=== PATIENT | female | born 1985 | race Caucasian/White ===

== ENCOUNTER 2022-01-01 08:21 | Emergency (ER) | payer SELFPAY ==
[2022-01-01] VITALS (9 sets, daily range): BP systolic 114–152; BP diastolic 79–107; PULSE 84–99; RESP 16–22; TEMP 36.3; O2SAT 94–97; BMI 41.9
--- NOTE | 2022-01-01 09:09 | ED.NURSE ---
Report from Deny Maxwell RN. I will now assume care of patient.
--- NOTE | 2022-01-01 09:13 | CRLHL7_ITS ---
For Patients: As a result of the Century Cures Act, medical imaging exams and procedure reports are released immediately into your electronic medical record. You may view this report before your referring provider. If you have questions, please contact your health care provider. INDICATION: Chest pain. TECHNIQUE: Chest 1 view. COMPARISON: None. FINDINGS: No focal consolidation, pleural effusion, or pneumothorax. Normal heart size and pulmonary vascularity. Slight elevation of the right hemidiaphragm. The bones are unremarkable. IMPRESSION: No acute cardiopulmonary findings. Dictated by Sherice Castro MD @ 01/01/2022 10:15:54 AM (Electronically Signed)
--- NOTE | 2022-01-01 09:15 | ED_ITS ---
HPI - Chest Pain General Time Seen by Provider: 09:00 Date Seen: 01/01/22 Chief Complaint: Chest Pain Stated Complaint: Chest pains Time Seen by Provider: 01/01/22 09:03 Source: patient and RN notes reviewed Mode of arrival: ambulatory Limitations: no limitations History of Present Illness HPI narrative: Rochelle is a very pleasant 36-year-old female who comes to the emergency room for evaluation regarding chest pain. Patient notes that she had the onset of chest pain when she awoke overnight. She this is in her left upper chest that she describes as somebody using their hands to presses heart is they can on it. It is not associated with shortness of breath but does get worse with walking and any movement. She took Advil and was able to fall back asleep. She states that the pain will occasionally shoot into her upper left arm. She states that when she bends her arm she will also have pain on the volar surface of the upper arm. She states that she does not have a regular doctor and just moved to [place]. She works here at a company called [employer]. Patient notes that she has had other EKGs and heart workup in the past because this has been going on and off for years, but it has not been as bad as today. Currently lying in her bed she states that the pain is gone except for a dull ache. When it is at its worse it is throbbing. She has a strong cardiac family history with a mom dying at the age of 60 from an [place] and brothers with history of atrial fibrillation. She does have hypertension but does not smoke. She cannot recall any trauma to this area. She also notes a history of scoliosis and arthritis in her neck. Note last week she did have runny nose and cough but relates this to her nieces and nephews who had some cold. MD complaint: chest heaviness and chest discomfort Pertinent past history: other (Hypertension) Onset (ago): hour(s) Timing of current episode: now resolved (Except for some dull achiness) Prior episodes: Yes Pain location: left chest Pain radiation: left arm Risk Factors Coronary artery disease risk factors: diabetes and hypertension Related Data Home Medications Medication Instructions Recorded Confirmed lisinopril 10 mg tablet mg 01/01/22 metformin 500 mg tablet 500 mg PO BID 01/01/22 01/01/22 Allergies Allergy/AdvReac Type Severity Reaction Status Date / Time No Known Drug Allergies Allergy Verified 01/01/22 08:32 Review of Systems Status of ROS Reports: 10 or more systems reviewed and unremarkable except as noted in History and below Const Denies: fever or fatigue Eyes Denies: change in vision ENMT Denies: throat pain or difficulty swallowing Cardio Reports: chest pain, swelling of feet/ankles (Chronic swelling of the right ankle) and other (No pain in the calves or history of DVT); Denies: palpitations or shortness of breath with exertion Resp Reports: cough; Denies: shortness of breath GI Denies: difficulty swallowing Neuro Denies: headache or numbness in extremities Endo Denies: fatigue PFSH PFSH Medical History Diabetes Hypertension Family History Brother A-fib Father Diabetes Hypercholesteremia High blood pressure COPD (chronic obstructive pulmonary disease) Mother Diabetes Hypercholesteremia High blood pressure Father Diabetes Social History Smoking Status: Former smoker Do you use any of these nicotine containing products: None Second hand tobacco smoke exposure: Yes How often do you have a drink containing alcohol: never AUDIT-C Alcohol total score: 0 Non-prescribed substance use: denies use service: No Exam Const Vital Signs, click to edit/add: Vital Signs - 24 hr 01/01/22 08:25 01/01/22 09:00 01/01/22 09:30 Temperature 97.3 F L Pulse Rate [Right Radial] 97 99 85 Respiratory Rate 16 16 18 Blood Pressure [Right Upper Arm] 131/91 H 152/107 H 137/97 H Pulse Oximetry 97 95 97 01/01/22 10:00 01/01/22 10:30 01/01/22 11:00 Temperature Pulse Rate [Right Radial] 88 91 91 Respiratory Rate 18 22 18 Blood Pressure [Right Upper Arm] 123/79 125/83 124/81 Pulse Oximetry 94 95 95 01/01/22 11:30 01/01/22 12:00 01/01/22 12:30 Temperature Pulse Rate [Right Radial] 88 87 84 Respiratory Rate 18 Blood Pressure [Right Upper Arm] 114/81 122/82 124/86 Pulse Oximetry 96 96 Documenting provider has reviewed patient's vital signs: yes Common normals: no apparent distress and oriented x3 General appearance: cooperative Nutritional appearance: overweight HENMT Common normals: head/scalp atraumatic Head and scalp: atraumatic Eye Common normals: PERRL and conjunctivae normal General eye: normal appearance of both eyes Conjunctiva: conjunctiva(e) normal Pupil: PERRL Neck & C-Spine Common normals: full ROM and supple Resp Common normals: normal respiratory effort and clear to auscultation bilaterally Auscultation: clear to auscultation bilaterally Cardio Common normals: regular rate and regular rhythm Rate: regular rate Rhythm: regular rhythm GI Common normals: Normal to inspection, nondistended, normoactive bowel sounds present and soft to palpation Palpation: soft Extremity Other: Positive Spurling sign on the left. With pain radiating into left lateral chest and upper arm. Full strength and motor in left arm. Increases discomfort however on the left anterior chest wall. Palpation over chest wall yields no discomfort with the exception as extreme lateral chest wall and musculature. Neuro Common normals: oriented x3 Skin Common normals: no rashes or lesions noted General skin exam: no rashes or lesions noted Course Course Hospital Course: Initial history and examination points toward a musculoskeletal cause of this discomfort. However, Rochelle has risk factors for cardiac disease including diabetes and hypertension as well as a strong family history of cardiac disease. Will obtain a troponin and EKG now and in greater than 90 minutes as well as chest x-ray. We will check other labs to include a CBC basic panel. Reevaluation(s) Reevaluation #1: Patient notes that after Toradol she can still feel ?something? in her left upper chest but she is improved. During her stay here she has had no abnormalities noted on EKG. Or heart monitor. Reevaluation #2: Patient notes improvement of her chest pain post Toradol administration. She notes that if she is able to hold her arm in front of her body she has no discomfort. Any sort external rotation or extension does increase her discomfort. With her 2nd troponin and EKG being reassuring I do think that this is most likely musculoskeletal discomfort. Time: 12:15 Vital Signs Vital signs: Initial Vital Signs Temperature 97.3 F L 01/01/22 08:25 Temperature Source Temporal Artery Scan 01/01/22 08:25 Pulse Rate 97 01/01/22 08:25 Pulse Rhythm 01/01/22 08:25 Respiratory Rate 16 01/01/22 08:25 Blood Pressure 131/91 H 01/01/22 08:25 Blood Pressure Mean 104 01/01/22 08:25 Blood Pressure Position Sitting 01/01/22 08:25 Pulse Oximetry 97 01/01/22 08:25 Oxygen Delivery Method 01/01/22 08:25 Vital Signs Temperature 97.3 F L 01/01/22 08:25 Pulse Rate 97 01/01/22 08:25 Respiratory Rate 16 01/01/22 08:25 Blood Pressure 131/91 H 01/01/22 08:25 Pulse Oximetry 97 01/01/22 08:25 Temperature 97.3 F L 01/01/22 08:25 Pulse Rate 84 01/01/22 12:30 Respiratory Rate 18 01/01/22 12:30 Blood Pressure 124/86 01/01/22 12:30 Pulse Oximetry 96 01/01/22 12:30 MDM - Chest Pain MDM Narrative Medical decision making narrative: 1. Left shoulder pain-at this time I do believe patient likely has localized musculoskeletal discomfort. However I cannot rule out a radicular component as she did have a positive Spurling sign on the left. I do not think this is secondary to a cardiac cause. At this time she has full motor and strength. She is feeling better after Toradol and she may continue to use NSAIDs as she needs for discomfort. I would have her follow-up with orthopedics and she will likely need a physical therapy consult as well. She is to return to the emergency room for worsening symptoms. 2. Atypical chest pain-patient has EKGs x2 that are reassuring as well as 2 negative troponins. 3. Disposition-patient is discharged home. A note for work is given for today. Medical Records Data Attestation: I reviewed the patient's medical records. Lab Data Attestation: I reviewed the patient's lab results. Labs: Lab Results 01/01/22 01/01/22 01/01/22 Range/Units 09:30 09:32 09:32 WBC 3.82 L (4.50-11.00) K/uL RBC 4.51 (4.00-5.20) m/uL Hgb 13.6 (12.0-16.0) gm/dL Hct 40.4 (33.0-51.0) % MCV 90 (80-100) fL MCH 30 (26-34) pg MCHC 34 (32-36) gm/dL RDW Coeff of Antonella 13.1 (11.5-15.5) % Plt Count 228 (140-440) K/uL Neut % (Auto) 59.1 (42.0-72.0) % Lymph % (Auto) 31.7 (20-44) % [place] % (Auto) 7.3 (0.0-11.0) % Eos % (Auto) 1.6 (0.0-7.0) % Baso % (Auto) 0.0 (0.0-3.0) % Neut # (Auto) 2.30 (1.7-7.0) K/uL Lymph # (Auto) 1.20 (0.90-2.90) K/uL [place] # (Auto) 0.30 (0.00-0.90) K/UL Eos # (Auto) 0.10 (0.00-0.50) K/uL Baso # (Auto) 0.00 (0.00-0.30) K/uL Abs Immat Gran (auto) 0.01 (0.00-0.30) K/uL Sodium 137 (135-149) mmol/L Potassium 4.1 (3.6-5.1) mmol/L Chloride 104 (96-114) mmol/L Carbon Dioxide 22 (20-32) mmol/L BUN 12 (5-24) mg/dL Creatinine 0.6 (0.5-1.5) mg/dL Estimated Creat Clear 142.87 Glucose 210 H (60-115) mg/dL Calcium 9.2 (8.4-10.6) mg/dL SARS-CoV-2 (PCR) (Negative) Influenza Type A (PCR) (Negative) Influenza Type B (PCR) (Negative) POC Troponin I 0.00 L (0.01-0.04) ng/ml 01/01/22 01/01/22 Range/Units 09:32 11:45 WBC (4.50-11.00) K/uL RBC (4.00-5.20) m/uL Hgb (12.0-16.0) gm/dL Hct (33.0-51.0) % MCV (80-100) fL MCH (26-34) pg MCHC (32-36) gm/dL RDW Coeff of Antonella (11.5-15.5) % Plt Count (140-440) K/uL Neut % (Auto) (42.0-72.0) % Lymph % (Auto) (20-44) % [place] % (Auto) (0.0-11.0) % Eos % (Auto) (0.0-7.0) % Baso % (Auto) (0.0-3.0) % Neut # (Auto) (1.7-7.0) K/uL Lymph # (Auto) (0.90-2.90) K/uL [place] # (Auto) (0.00-0.90) K/UL Eos # (Auto) (0.00-0.50) K/uL Baso # (Auto) (0.00-0.30) K/uL Abs Immat Gran (auto) (0.00-0.30) K/uL Sodium (135-149) mmol/L Potassium (3.6-5.1) mmol/L Chloride (96-114) mmol/L Carbon Dioxide (20-32) mmol/L BUN (5-24) mg/dL Creatinine (0.5-1.5) mg/dL Estimated Creat Clear Glucose (60-115) mg/dL Calcium (8.4-10.6) mg/dL SARS-CoV-2 (PCR) Negative SARS-CoV-2 (Negative) Influenza Type A (PCR) Negative PCR FLU A (Negative) Influenza Type B (PCR) Negative PCR FLU B (Negative) POC Troponin I 0.00 L (0.01-0.04) ng/ml Imaging Data chest xr: My impression: He by my read no evidence of infiltrates. Radiologist's impression: Concurs with no acute findings. ECG Data Attestation: I personally reviewed and interpreted this ECG as follows: (EKG 1. Sinus rhythm at a rate of [address] or T-wave changes. EKG 2. Sinus rhythm at a rate of 86. No acute ST or T-wave changes noted.) ECG interpretation date: 01/01/22 Prior ECG tracings: not available for review Discharge Plan Discharge Clinical Impression: Atypical chest pain, Left shoulder pain Patient Disposition: Home, Self-Care Condition: Improved Additional Instructions: At this point I do recommend follow-up with orthopedics. An appointment can be made at [phone]. You may need physical therapy as well. Return to the emergency room if you have the onset of new symptoms. A note for work is included in your discharge instructions today. Activity Level: No Restrictions Prescriptions: No Action lisinopril 10 mg tablet 0RF Label Comments: TAKE 1 TABLET BY MOUTH ONCE DAILY metformin 500 mg tablet 500 mg PO BID 0RF Follow Up/Referrals: Provider,Not a Local [Primary Care Provider] - Stand Alone Forms: [employer] Info Instructions
[2022-01-01 09:50] LABS: Eosinophils Percent Auto 1.6 % (0.0-7.0); Hematocrit 40.4 % (33.0-51.0); Hemoglobin* 13.6 gm/dL (12.0-16.0); Immature Granulocytes Abs Auto 0.01 K/uL (0.00-0.30); Lymphocytes Percent Auto 31.7 % (20-44); Mean Corpuscular HGB Conc 34 gm/dL (32-36); Mean Corpuscular Hemoglobin 30 pg (26-34); Mean Corpuscular Volume 90 fL (80-100); Monocytes Percent Auto 7.3 % (0.0-11.0); Neutrophils Percent Auto 59.1 % (42.0-72.0); Platelet Count* 228 K/uL (140-440); RDW Coefficient of Variation % 13.1 % (11.5-15.5); Red Blood Count 4.51 m/uL (4.00-5.20); White Blood Count* 3.82 K/uL (4.50-11.00)
[2022-01-01 09:57] LABS: Slide Review Reflex No
[2022-01-01 10:17] LABS: PCR FLU A Negative PCR FLU A (Negative); PCR FLU B Negative PCR FLU B (Negative)
[2022-01-01 10:22] LABS: Chloride* 104 mmol/L (96-114); Sodium* 137 mmol/L (135-149)
[2022-01-01 10:23] LABS: Potassium* 4.1 mmol/L (3.6-5.1)
[2022-01-01 10:26] LABS: Blood Urea Nitrogen* 12 mg/dL (5-24); Calcium* 9.2 mg/dL (8.4-10.6); Carbon Dioxide* 22 mmol/L (20-32); Creatinine* 0.6 mg/dL (0.5-1.5); Est. Creatinine Clearance* 142.87; Estimated Glomerular Filt Rate 120.72; Glucose* 210 mg/dL (60-115)
[2022-01-01 10:29] LABS: SARS PCR* Negative SARS-CoV-2 (Negative)
[2022-01-01] MEDS: KETOROLAC 15 MG/ML inj IVP (10:45)
--- NOTE | 2022-01-01 11:45 | ED.NURSE ---
Patient resting comfortably on cot, watching television. Pain remains 6/10. Throbbing. Patient denies needs at present. EKG obtained, labs drawn for recheck POC troponin.
== END 2022-01-01 12:36 | disposition home or self-care (01) ==
PROVIDERS: Emergency Provider Family Medicine
DX: R07.89 Other chest pain (principal); M25.512 Pain in left shoulder
CPT/HCPCS: 36415; 71045; 80048; 84484; 85025; 87502; 87635; 93005; 96374; 99285; J1885

== ENCOUNTER 2022-03-11 05:42 | Emergency (ER) | payer SELFPAY ==
[2022-03-11 05:47] VITALS: BP 155/79; PULSE 86; RESP 18; TEMP 35.9; O2SAT 97; BMI 41.9
--- NOTE | 2022-03-11 06:22 | CRLHL7_ITS ---
For Patients: As a result of the Century Cures Act, medical imaging exams and procedure reports are released immediately into your electronic medical record. You may view this report before your referring provider. If you have questions, please contact your health care provider. INDICATION: Pain COMPARISON: None TECHNIQUE: CT examination of the abdomen and pelvis was performed without intravenous contrast. Thin section axial images were obtained from the lung bases through the pubic symphysis. Oral contrast was not administered. Please note that all CT scans at this facility use dose modulation, iterative reconstruction, and/or weight-based dosing when appropriate to reduce radiation dose to as low as reasonably achievable. FINDINGS: LUNG BASES: The lung bases as visualized appear normal.The heart size is normal at the lung bases. LIVER/BILIARY SYSTEM:The liver is normal in size and configuration given the lack of intravenous contrast. There is no visible focal mass and there is no intra- or extra hepatic biliary ductal dilatation.Steatosis. Normal appearing gallbladder. ADRENALS: Normal non-contrast appearance KIDNEYS, URETERS and BLADDER:The kidneys appear normal given lack of intravenous contrast. No visible mass, calculus or hydronephrosis. The ureters and bladder as visualized appear normal. SPLEEN:Normal non-contrast appearance. PANCREAS: Normal non-contrast appearance. RETROPERITONEUM and MESENTERY: There is no mass, adenopathy or aortic aneurysm. GASTROINTESTINAL SYSTEM: There is no evidence of diverticulitis, colitis, mechanical obstruction, or appendicitis. The small bowel as visualized appears normal. PELVIS: No mass, adenopathy or free fluid. OSSEOUS STRUCTURES and ABDOMINAL WALL: Degenerative changes, especially at L4-L5 and L5-S1.Induration of the skin about umbilicus probably related to cellulitis. There is also a collection in this area best seen on axial image 141 and sagittal image 86. This measures about 3.2 x 2.0 centimeters. The collection probably represents an abscess and is relatively superficial. OTHER: No free fluid or free air. I discussed this case with Dr. Saurabh Lau at 7:14 a.m. on March 11, 2022 IMPRESSION: 1. Findings likely related to cellulitis of the umbilicus with an associated collection measuring 3.2 x 2.0 centimeters. The collection likely represents an abscess. 2. Other incidental nonacute appearing findings as above. Please note that all CT scans at this facility use dose modulation, iterative reconstruction, and/or weight-based dosing when appropriate to reduce radiation dose to as low as reasonably achievable. Dictated by Hunter Ramsey MD @ 03/11/2022 7:15:46 AM (Electronically Signed)
--- NOTE | 2022-03-11 06:24 | ED.GENADULT ---
HPI - General Adult General Chief complaint: Abdominal Pain Stated complaint: stomach issues Time Seen by Provider: 03/11/22 06:14 History of Present Illness HPI narrative: Patient is a 37-year-old female who comes in with two or three days of worsening abdominal pain. She has had some loose stools. Nothing black or bloody. She has also had some drainage from her belly button every month for several months. She complains of pain in this area but also more diffuse lower abdominal pain. No urinary symptoms. No nausea, vomiting, acid reflux. Tylenol and ibuprofen help some. Pain is worse when she bends forward. 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 No vaginal symptoms. Related Data Home Medications Medication Instructions Recorded Confirmed lisinopril 10 mg tablet mg 01/01/22 metformin 500 mg tablet 500 mg PO BID 01/01/22 03/11/22 Previous Rx's Medication Instructions Recorded cephalexin 500 mg capsule 500 mg PO TID 10 days #30 caps 03/11/22 Allergies Allergy/AdvReac Type Severity Reaction Status Date / Time No Known Drug Allergies Allergy Verified 01/01/22 08:32 Review of Systems Status of ROS: Reports: 10 or more systems reviewed and unremarkable except as noted in History and below PFSH PFS Medical History (Updated 03/11/22 @ 07:40 by Saurabh Lau MD) Exogenous obesity Hypertension Type 2 diabetes mellitus Family History Brother A-fib Father Diabetes Hypercholesteremia High blood pressure COPD (chronic obstructive pulmonary disease) Mother Diabetes Hypercholesteremia High blood pressure Father Diabetes Social History (Updated 03/11/22 @ 06:23 by Saurabh Lau MD) Narrative: Single, [place], nonsmoker, social EtOH Smoking Status: Former smoker Do you use any of these nicotine containing products: None Second hand tobacco smoke exposure: Yes How often do you have a drink containing alcohol: never AUDIT-C Alcohol total score: 0 Non-prescribed substance use: denies use service: No Exam Narrative: Exam Narrative: Vitals noted. HEENT: Conjunctiva clear. Neck is supple without adenopathy, thyromegaly.. Lungs: Clear to auscultation in all pereira. No wheezes, rales, rhonchi. Heart: Regular rate and rhythm without murmur. Abdomen: Obese, Soft and nontender. No guarding, rigidity, rebound. Bowel sounds are normal. No palpable masses. She has redness and pus coming from her umbilicus. This area is tender when probed. Extremities: No cyanosis or edema. Good distal pulses. Neurologic: Awake, alert, fully oriented. Neurologic exam is nonfocal. Const: Vital Signs, click to edit/add: Vital Signs - 24 hr 03/11/22 05:47 Temperature 96.6 F L Pulse Rate [Pulse Oximeter] 86 Respiratory Rate 18 Blood Pressure [Le ft Upper Arm] 155/79 H Pulse Oximetry 97 Oxygen Delivery Me thod Room Air Documenting provider has reviewed patient's vital signs: yes Course Course Hospital Course: Patient was seen and examined. Labs and CT of the abdomen and pelvis are ordered. She declines a need for pain medication. Reevaluation(s) Reevaluation #1: Labs are all unremarkable other than elevated glucose. CT shows a 2 x 3 cm umbilical abscess but is otherwise unremarkable. Vital Signs Vital signs: Initial Vital Signs Temperature 96.6 F L 03/11/22 05:47 Temperature Source Temporal Artery Scan 03/11/22 05:47 Pulse Rate 86 03/11/22 05:47 Respiratory Rate 18 03/11/22 05:47 Blood Pressure 155/79 H 03/11/22 05:47 Blood Pressure Mean 104 03/11/22 05:47 Blood Pressure Position Sitting 03/11/22 05:47 Pulse Oximetry 97 03/11/22 05:47 Oxygen Delivery Method 03/11/22 05:47 Vital Signs Temperature 96.6 F L 03/11/22 05:47 Pulse Rate 86 03/11/22 05:47 Respiratory Rate 18 03/11/22 05:47 Blood Pressure 155/79 H 03/11/22 05:47 Pulse Oximetry 97 03/11/22 05:47 Oxygen Delivery Method 03/11/22 05:47 Temperature 96.6 F L 03/11/22 05:47 Pulse Rate 86 03/11/22 05:47 Respiratory Rate 18 03/11/22 05:47 Blood Pressure 155/79 H 03/11/22 05:47 Pulse Oximetry 97 03/11/22 05:47 Oxygen Delivery Method 03/11/22 05:47 Medical Decision Making Lab Data Labs: Lab Results 03/11/22 03/11/22 03/11/22 Range/Units 06:29 06:29 07:20 WBC 3.39 L (4.50-11.00) K/uL RBC 4.17 (4.00-5.20) m/uL Hgb 12.7 (12.0-16.0) gm/dL Hct 37.4 (33.0-51.0) % MCV 90 (80-100) fL MCH 31 (26-34) pg MCHC 34 (32-36) gm/dL RDW Coeff of Antonella 13.4 (11.5-15.5) % Plt Count 204 (140-440) K/uL Neut % (Auto) 59.5 (42.0-72.0) % Lymph % (Auto) 29.5 (20-44) % [place] % (Auto) 8.6 (0.0-11.0) % Eos % (Auto) 1.8 (0.0-7.0) % Baso % (Auto) 0.3 (0.0-3.0) % Neut # (Auto) 2.00 (1.7-7.0) K/uL Lymph # (Auto) 1.00 (0.90-2.90) K/uL [place] # (Auto) 0.30 (0.00-0.90) K/UL Eos # (Auto) 0.10 (0.00-0.50) K/uL Baso # (Auto) 0.00 (0.00-0.30) K/uL Abs Immat Gran (auto) 0.01 (0.00-0.30) K/uL Sodium 137 (135-149) mmol/L Potassium 3.7 (3.6-5.1) mmol/L Chloride 103 (96-114) mmol/L Carbon Dioxide 21 (20-32) mmol/L BUN 11 (5-24) mg/dL Creatinine 0.5 (0.5-1.5) mg/dL Estimated Creat Clear 164.12 Estimated GFR 125 ml/min Glucose 186 H (60-115) mg/dL Calcium 8.6 (8.4-10.6) mg/dL Total Bilirubin 0.5 (0.1-1.5) mg/dL Direct Bilirubin 0.2 (0.0-0.5) mg/dL AST 32 (12-35) U/L ALT 32 (4-35) U/L Alkaline Phosphatase 69 (40-150) U/L Total Protein 7.0 (6.0-8.3) g/dL Albumin 4.2 (3.3-5.0) g/dL Lipase 64 (23-300) U/L Urine Color Yellow (Yellow) Urine Appearance Clear (Clear) Urine pH 6.0 (5.0-8.5) Ur Specific [place] 1.020 (1.000-1.030) Urine Protein Negative (Negative) Urine Glucose (UA) Trace A (Negative) Urine Ketones Negative (Negative) Urine Blood Negative (Negative) Urine Nitrite Negative (Negative) Urine Bilirubin Negative (Negative) Urine Urobilinogen 0.2 (0.2-1.0) Ur Leukocyte Esterase Trace A (Negative) Discharge Plan Discharge Clinical Impression: Abscess or cellulitis of umbilicus Patient Disposition: Home, Self-Care Condition: Stable Additional Instructions: Hot packs several times a day. Keflex 500 mg 3 times daily for the next 10 days. Tylenol or ibuprofen for pain. No work 03/11/22 through 03/13/2022. If not resolving he will need to have this abscess opened by your clinic doctor. Prescriptions: New cephalexin 500 mg capsule 500 mg PO TID 10 Days Qty: 30 0RF No Action lisinopril 10 mg tablet Label Comments: TAKE 1 TABLET BY MOUTH ONCE DAILY metformin 500 mg tablet 500 mg PO BID Follow Up/Referrals: Provider,Not a Local [Primary Care Provider] - Stand Alone Forms: [facility] Info Instructions
[2022-03-11 06:36] LABS: Basophils Percent Auto 0.3 % (0.0-3.0); Eosinophils Percent Auto 1.8 % (0.0-7.0); Hematocrit 37.4 % (33.0-51.0); Hemoglobin* 12.7 gm/dL (12.0-16.0); Immature Granulocytes Abs Auto 0.01 K/uL (0.00-0.30); Lymphocytes Percent Auto 29.5 % (20-44); Mean Corpuscular HGB Conc 34 gm/dL (32-36); Mean Corpuscular Hemoglobin 31 pg (26-34); Mean Corpuscular Volume 90 fL (80-100); Monocytes Percent Auto 8.6 % (0.0-11.0); Neutrophils Percent Auto 59.5 % (42.0-72.0); Platelet Count* 204 K/uL (140-440); RDW Coefficient of Variation % 13.4 % (11.5-15.5); Red Blood Count 4.17 m/uL (4.00-5.20); White Blood Count* 3.39 K/uL (4.50-11.00)
[2022-03-11 06:40] LABS: Slide Review Reflex No
[2022-03-11 06:46] LABS: Albumin* 4.2 g/dL (3.3-5.0); Chloride* 103 mmol/L (96-114); Sodium* 137 mmol/L (135-149)
[2022-03-11 06:47] LABS: Potassium* 3.7 mmol/L (3.6-5.1)
[2022-03-11 06:49] LABS: Alkaline Phosphatase* 69 U/L (40-150); Aspartate Amino Transferase* 32 U/L (12-35); Bilirubin Direct* 0.2 mg/dL (0.0-0.5); Bilirubin Total* 0.5 mg/dL (0.1-1.5); Blood Urea Nitrogen* 11 mg/dL (5-24); Calcium* 8.6 mg/dL (8.4-10.6); Carbon Dioxide* 21 mmol/L (20-32); Creatinine* 0.5 mg/dL (0.5-1.5); Est. Creatinine Clearance* 164.12; Estimated Glomerular Filt Rate 125 ml/min; Glucose* 186 mg/dL (60-115); Lipase* 64 U/L (23-300)
[2022-03-11 06:50] LABS: Alanine Aminotransferase* 32 U/L (4-35)
[2022-03-11 07:28] LABS: Appearance Urine Clear (Clear); Bilirubin Urine Negative (Negative); Blood Urine Negative (Negative); Color Urine Yellow (Yellow); Glucose Urine Trace (Negative); Ketones Urine Negative (Negative); Leukocyte Esterase Urine Trace (Negative); Nitrite Urine Negative (Negative); Protein Urine Negative (Negative); Urobilinogen Urine 0.2 (0.2-1.0)
[2022-03-11 07:35] VITALS: BP 149/98; PULSE 73; RESP 20; TEMP 36.2; O2SAT 99
--- NOTE | 2022-03-11 07:43 | ED.NURSE ---
dr vincent was in and explored her umbilicus. is sore in that area and does report that she has been having issues in that area. will be dc to home.
[2022-03-11 07:45] LABS: RBC Urine 0-2 (0-2)
[2022-03-11 07:46] LABS: Bacteria Urine Few; Squamous Epithelial Cell Urine Few (None-Few)
== END 2022-03-11 07:56 | disposition home or self-care (01) ==
PROVIDERS: Emergency Provider Family Medicine
DX: L03.316 Cellulitis of umbilicus (principal)
CPT/HCPCS: 36415; 74176; 80048; 80076; 81003; 81015; 83690; 85025; 87086; 99283; 99284